=== PATIENT | female | born 1955 | race African-American/Black ===

== ENCOUNTER 2019-02-08 14:45 | Inpatient (IN) | payer OTHER ==
[2019-02-08 18:39] VITALS: BMI 21.6
--- NOTE | 2019-02-08 19:04 | HP ---
CIWA Score Nausea/Vomitin Muscle Tremors: 1-None Visible, but [place] Anxiety: 2 Agitation: 1-Slight > Activity Paroxysmal Sweats: 1-Minimal Palms Moist Orientation: 2-Disoriented Date<2 days Tacttile Disturbances: 0-None Auditory Disturbances: 1-Very Mild Visual Disturbances: 1-Very Mild Sensitivity Headache: 1-Very Mild CIWA-Ar Total Score: 13 - Admission Criteria OASAS Guidelines: Admission for Medically Managed Detox: Requires at least one of the followin. CIWA greater than 12 2. Seizures within the past 24 hours 3. Delirium tremens within the past 24 hours 4. Hallucinations within the past 24 hours 5. Acute intervention needed for co occurring medical disorder 6. Acute intervention needed for co occurring psychiatric disorder 7. Severe withdrawal that cannot be handled at a lower level of care (continued vomiting, continued diarrhea, abnormal vital signs) requiring intravenous medication and/or fluids 8. Admission ROS [facility] - [facility] Chief Complaint: Withdrawal symptoms Allergies/Adverse Reactions: Allergies Allergy/AdvReac Type Severity Reaction Status Date / Time No Known Drug Allergies Allergy Verified 02/08/19 18:01 History of Present Illness: 63 y.o. woman with an history of alcohol dependence is here seeking her first admission to detox. Pt. is a poor historian and is forgetful. She is currently enrolled at [facility] and reports she was last medicated with 60mg of methadone today (unverified). Exam Limitations: No Limitations - Ebola screening Have you traveled outside of the country in the last 21 days: No Have you had contact with anyone from an Ebola affected area: No - Review of Systems Constitutional: Chills, Loss of Appetite, Unintentional Wgt. Loss EENT: reports: No Symptoms Reported Respiratory: reports: Shortness of Breath Cardiac: reports: No Symptoms Reported GI: reports: Diarrhea : reports: No Symptoms Reported Musculoskeletal: reports: Back Pain Integumentary: reports: No Symptoms Reported Neuro: reports: No Symptoms reported Endocrine: reports: No Symptoms Reported Hematology: reports: No Symptoms Reported Psychiatric: reports: Anxious, other (Forgetful) Other Systems: Reviewed and Negative Patient History - Patient Medical History Hx Anemia: No Hx Asthma: Yes (Childhood asthma ) Hx Chronic Obstructive Pulmonary Disease (COPD): No Hx Cancer: No Hx Cardiac Disorders: No Hx Congestive Heart Failure: No Hx Hypertension: Yes (On medication) Hx Hypercholesterolemia: No Hx Pacemaker: No HX Cerebrovascular Accident: No Hx Seizures: No Hx Dementia: No Hx Diabetes: No Hx Gastrointestinal Disorders: No Hx Liver Disease: No Hx Genitourinary Disorders: No Hx Sexually Transmitted Disorders: No Hx Renal Disease (ESRD): No Hx Thyroid Disease: No Hx Human Immunodeficiency Virus (HIV): No Hx Hepatitis C: No Hx Depression: Yes Hx Suicide Attempt: No Hx Bipolar Disorder: No Hx Schizophrenia: No - Patient Surgical History Past Surgical History: Yes Hx Orthopedic Surgery: Yes (Back surgery: "Don't remember, long time ago". ) Anesthesia Reaction: No - PPD History Previous Implant?: Yes Documented Results: Negative w/o proof PPD to be Administered?: Yes - Reproductive History Patient is a Female of Child Bearing Age (11 -55 yrs old): No Patient : No - Smoking Cessation Smoking history: Current every day smoker Have you smoked in the past 12 months: Yes Aproximately how many cigarettes per day: 6 Initiated information on smoking cessation: Yes 'Breaking Loose' booklet given: 02/08/19 - Substance & Tx. History Hx Alcohol Use: Yes Hx Substance Use: Yes Substance Use Type: Alcohol, Cocaine Hx Substance Use Treatment: Yes (Goes to [facility] ) - Substances abused Alcohol Substance route: Oral Frequency: Daily Amount used: Beer 8 cans Age of first use: 18 Date of last use: 02/08/19 Cocaine Substance route: Inhalation Frequency: 1-2 times per week Amount used: $5 Age of first use: 62 Date of last use: 02/03/19 Family Disease History - Family Disease History Family Disease History: Heart Disease: Father (Alcohol dependence; Lung cancer; ), CA: Father, Other: Father Admission Physical Exam S - Vital Signs Vital Signs: Vital Signs - 24 hr 02/08/19 18:25 Temperature 98.7 F Pulse Rate 70 Respiratory 16 Rate Blood Pressure 115/70 - Physical General Appearance: Yes: Irritable, Anxious HEENTM: Yes: Hearing grossly Normal, Normocephalic, Normal Voice Respiratory: Yes: Lungs Clear, Normal Breath Sounds, No Respiratory Distress, No Accessory Muscle Use Neck: Yes: Within Normal Limits Breast: Yes: Breast Exam Deferred Cardiology: Yes: Regular Rhythm, Regular Rate Abdominal: Yes: Normal Bowel Sounds, Non Tender, Flat, Soft Genitourinary: Yes: Other (No complaints reported) Back: Yes: Normal Inspection Musculoskeletal: Yes: full range of Motion Extremities: Yes: Normal Inspection, Normal Range of Motion, Non-Tender Neurological: Yes: Alert (Alert to self.), Other (Forgetful) Integumentary: Yes: Dry, Warm Lymphatic: Yes: Within Normal Limits - Diagnostic (1) Alcohol dependence with intoxication, uncomplicated Current Visit: Yes Status: Chronic (2) Cocaine dependence Current Visit: Yes Status: Chronic (3) Nicotine dependence Current Visit: Yes Status: Chronic (4) Asthma Current Visit: Yes Status: Chronic (5) Hypertension Current Visit: Yes Status: Chronic (6) Opioid dependence on agonist therapy Current Visit: Yes Status: Chronic (7) Chronic back pain Current Visit: Yes Status: Chronic (8) Forgetfulness Current Visit: Yes Status: Acute Cleared for Admission S - Detox or Rehab [facility] Level of Care: Medically Managed Detox Regimen/Protocol: Librium Claeared for Rehab Admission: No Breathalyzer - Breathalyzer Breathalyzer: 0 Urine Drug Screen - Test Device Lot number: [id number] Expiration date: 10/23/20 - Control Is test valid?: Yes - Results Drug screen NEGATIVE: No Urine drug screen results: HERMILO-Cocaine, MOP-Opiates, MTD-Methadone Inpatient Rehab Admission - Rehab Decision to Admit Inpatient rehab admission?: No
[2019-02-08] MEDS ORDERED: MELATONIN 5 MG TABLETS PO PRN (19:13)
[2019-02-08] MEDS ORDERED: chlordiazePOXIDE HCL 10 MG CAPSULE PO PRN (19:13)
[2019-02-08] MEDS ORDERED: ACETAMINOPHEN 325 MG TABLET (FP) PO PRN ×2 (19:13)
[2019-02-08] MEDS ORDERED: MAG HYDROX/AL HYDROX/SIMETH 30 ML UNIT-DOSE CUP PO PRN (19:13)
[2019-02-08] MEDS ORDERED: hydrOXYzine PAMOATE 25 MG CAPSULE (FP) PO PRN (19:13)
[2019-02-08] MEDS ORDERED: MAGNESIUM CITRATE 300 ML BOTTLE PO PRN (19:13)
[2019-02-08] MEDS ORDERED: MAGNESIUM HYDROX 2400MG/30ML ORAL SUSPENSION 30 ML CUP PO PRN (19:13)
[2019-02-08] MEDS ORDERED: BISMUTH SUBSALICYLATE 524 MG/30 ML UD PO PRN (19:13)
[2019-02-08] MEDS ORDERED: IBUPROFEN 400 MG TABLET (FP) PO PRN (19:13)
[2019-02-08] MEDS ORDERED: MENTHOL/PHENOL 1 EACH UD MM PRN (19:13)
[2019-02-08] MEDS ORDERED: NICOTINE POLACRILEX 2 MG GUM BUC PRN (19:13)
[2019-02-08] MEDS: chlordiazePOXIDE HCL 25 MG CAPSULE PO SCH (21:13)
[2019-02-08] MEDS: THIAMINE HCL 100 MG TABLET (FP) PO SCH (21:13)
[2019-02-09] MEDS: chlordiazePOXIDE HCL 25 MG CAPSULE PO SCH ×3 (05:25→22:25)
[2019-02-09] MEDS ORDERED: METHADONE HCL 10 MG TABLET PO ONE (08:31)
[2019-02-09] MEDS: PRENATAL VITAMINS W/ FOLIC ACID TABLET (FP) PO SCH (09:21)
[2019-02-09] MEDS: HYDROCHLOROTHIAZIDE 25 MG TABLET (FP) PO SCH (09:21)
--- NOTE | 2019-02-09 09:54 | CONSULT ---
[facility] Psychiatric Consult - Data Date of interview: 02/09/19 Admission source: Self-referred Identifying data: Ms Park is a 63 years old single Black female, mother of 3 adopted sons, retired from [email or web address],receiving social security, homeless seeking detox treatment for alcohol and cocaine Substance Abuse History: Reports history of alcohol and cocaine use. Refer to addiction counselor summary for further information Medical History: Significant for bronchial asthma, hypertension, history of back surgery. Patient is on methadone 40 mg/day from [facility]. Smokes 6 cigarettes Psychiatric History: Reports that her only psychiatric treatment was for a few months from late to early college. Claims that depressive symptoms stemmed from relationship issue. She said that she was prescribed medication but has no recollection of the name of it. Denies previous psychiaric hospitalization or suicidal attemt. At present, reports feeling mildly depressed and sleeping poorly Physical/Sexual Abuse/Trauma History: Denies history of emotional, physical or sexual abuse as well as DV relationship. No millitary service Additional Comment: Denies criminal history Mental Status Exam - Mental Status Exam Alert and Oriented to: Place, Person Cognitive Function: Fair Patient Appearance: Well Groomed Mood: Depressed (mildly) Affect: Normal Range Patient Behavior: Cooperative Speech Pattern: Clear Voice Loudness: Normal Thought Process: Intact, Goal Oriented Hallucinations: Denies Suicidal Ideation: Denies Homicidal Ideation: Denies Insight/Judgement: Poor Sleep: Poorly Appetite: Good Muscle strength/Tone: Normal Gait/Station: Normal Psychiatric Findings - Problem List ([place] 1, 2,3) (1) Substance induced mood disorder Current Visit: Yes Status: Acute (2) Substance-induced sleep disorder Current Visit: Yes Status: Acute (3) Alcohol dependence with intoxication, uncomplicated Current Visit: Yes Status: Acute (4) Cocaine dependence Current Visit: Yes Status: Acute (5) Opioid dependence on agonist therapy Current Visit: Yes Status: Chronic (6) Nicotine dependence Current Visit: Yes Status: Acute (7) Asthma Current Visit: Yes Status: Chronic (8) Chronic back pain Current Visit: Yes Status: Chronic (9) Hypertension Current Visit: Yes Status: Chronic - Initial Treatment Plan Initial Treatment Plan: 1) Start Melatonin 10 mg po HS prn for insomnia. 2) Continue inpatient detoxification
[2019-02-09 10:05] LABS: HEMATOCRIT 39.7 % (32.4-45.2); HEMOGLOBIN 13.1 GM/dL (10.7-15.3); MCH 30.9 pg (25.7-33.7); MEAN CELL VOLUME 93.6 fl (80-96); MEAN PLT VOLUME 8.4 fl (7.5-11.1); PLATELET COUNT 265 K/MM3 (134-434); RBC 4.24 M/mm3 (3.60-5.2); RDW 13.3 % (11.6-15.6); WHITE BLOOD COUNT 5.2 K/mm3 (4.0-10.0)
--- NOTE | 2019-02-09 10:13 | EKG ---
Test Reason : Blood Pressure : / mmHG Vent. Rate : 066 BPM Atrial Rate : 066 BPM P-R Int : 120 ms QRS Dur : 088 ms QT Int : 414 ms P-R-T Axes : 060 062 073 degrees QTc Int : 434 ms SINUS RHYTHM WITH FREQUENT PREMATURE VENTRICULAR COMPLEXES AND PREMATURE ATRIAL COMPLEXES MINIMAL VOLTAGE CRITERIA FOR LVH, MAY BE NORMAL VARIANT SEPTAL INFARCT , AGE UNDETERMINED ABNORMAL ECG NO PREVIOUS ECGS AVAILABLE Confirmed by MD Shar, Jesus ([id number]) on 02/09/2019 10:12:56 AM Referred By: Confirmed By:Jesus Myles MD
[2019-02-09 10:17] LABS: ALBUMIN 3.8 g/dl (3.4-5.0); BILIRUBIN,TOTAL 0.4 mg/dL (0.2-1); BLOOD UREA NITROGEN 33.3 mg/dL (7-18); CALCIUM 9.6 mg/dL (8.5-10.1); CREATININE 1.5 mg/dL (0.55-1.3); POTASSIUM 3.6 mmol/L (3.5-5.1); TOT PROT 7.6 g/dl (6.4-8.2)
[2019-02-09] MEDS: NICOTINE 14 MG/24 HOURS TOPICAL PATCH TD SCH (11:33)
--- NOTE | 2019-02-09 12:25 | PN ---
S CIWA - CIWA Score Nausea/Vomitin-No Nausea/No Vomiting Muscle Tremors: 3 Anxiety: 3 Agitation: 3 Paroxysmal Sweats: 3 Orientation: 0-Oriented Tacttile Disturbances: 0-None Auditory Disturbances: 0-None Visual Disturbances: 0-None Headache: 0-None Present CIWA-Ar Total Score: 12 S Progress Note (SOAP) Subjective: sweats shakes body aches tired Objective: 02/09/19 12:24 Vital Signs Temperature 97.2 F L 02/09/19 09:23 Pulse Rate 74 02/09/19 09:23 Respiratory Rate 16 02/09/19 09:23 Blood Pressure 100/71 02/09/19 09:23 O2 Sat by Pulse Oximetry (%) Laboratory Tests 02/09/19 02/09/19 08:00 08:00 WBC 5.2 RBC 4.24 Hgb 13.1 Hct 39.7 MCV 93.6 MCH 30.9 MCHC 33.0 RDW 13.3 Plt Count 265 MPV 8.4 Sodium 141 Potassium 3.6 Chloride 102 Carbon Dioxide 32 Anion Gap 6 L BUN 33.3 H Creatinine 1.5 H Est GFR (CKD-EPI)AfAm 42.23 Est GFR (CKD-EPI)NonAf 36.44 Random Glucose 62 L Calcium 9.6 Total Bilirubin 0.4 AST 26 ALT 21 Alkaline Phosphatase 96 Total Protein 7.6 Albumin 3.8 labs noted aaox3 ambulating no acute distress Assessment: 02/09/19 12:25 withdrawal sx Plan: continue detox increase fluids
[2019-02-09] MEDS ORDERED: TUBERCULIN PPD 5 TU/0.1ML SYRINGE (IN PATIENT USE ONLY) ID ONE (16:47)
[2019-02-09] MEDS: THIAMINE HCL 100 MG TABLET (FP) PO SCH (22:25)
[2019-02-09] MEDS: METHOCARBAMOL 500 MG TABLET PO PRN (22:25)
[2019-02-09] MEDS: MELATONIN 5 MG TABLETS PO PRN (22:25)
[2019-02-10] MEDS: chlordiazePOXIDE 5 MG CAPSULE PO SCH ×3 (06:15→22:04)
[2019-02-10] MEDS: METHADONE HCL 40 MG DISPERSABLE TABLET PO SCH (06:16)
[2019-02-10] MEDS: HYDROCHLOROTHIAZIDE 25 MG TABLET (FP) PO SCH (10:08)
[2019-02-10] MEDS: PRENATAL VITAMINS W/ FOLIC ACID TABLET (FP) PO SCH (10:08)
[2019-02-10] MEDS: NICOTINE 14 MG/24 HOURS TOPICAL PATCH TD SCH (10:09)
--- NOTE | 2019-02-10 12:09 | PN ---
S CIWA - CIWA Score Nausea/Vomitin-No Nausea/No Vomiting Muscle Tremors: 2 Anxiety: 2 Agitation: 3 Paroxysmal Sweats: 2 Orientation: 0-Oriented Tacttile Disturbances: 0-None Auditory Disturbances: 0-None Visual Disturbances: 0-None Headache: 0-None Present CIWA-Ar Total Score: 9 BHS Progress Note (SOAP) Subjective: sweats tired interrupted sleep Objective: 02/10/19 12:08 Vital Signs Temperature 96 F L 02/10/19 09:26 Pulse Rate 91 H 02/10/19 09:26 Respiratory Rate 18 02/10/19 09:26 Blood Pressure 133/66 02/10/19 09:26 O2 Sat by Pulse Oximetry (%) Laboratory Tests 02/09/19 02/09/19 02/09/19 08:00 08:00 08:00 WBC 5.2 RBC 4.24 Hgb 13.1 Hct 39.7 MCV 93.6 MCH 30.9 MCHC 33.0 RDW 13.3 Plt Count 265 MPV 8.4 Sodium 141 Potassium 3.6 Chloride 102 Carbon Dioxide 32 Anion Gap 6 L BUN 33.3 H Creatinine 1.5 H Est GFR (CKD-EPI)AfAm 42.23 Est GFR (CKD-EPI)NonAf 36.44 Random Glucose 62 L Calcium 9.6 Total Bilirubin 0.4 AST 26 ALT 21 Alkaline Phosphatase 96 Total Protein 7.6 Albumin 3.8 RPR Titer Nonreactive aaox3 ambulating no acute distress Assessment: 02/10/19 12:08 mild withdrawal Plan: continue detox increase fluids
[2019-02-10] MEDS: METHOCARBAMOL 500 MG TABLET PO PRN (22:04)
[2019-02-10] MEDS: THIAMINE HCL 100 MG TABLET (FP) PO SCH (22:04)
[2019-02-10] MEDS: MELATONIN 5 MG TABLETS PO PRN (22:05)
[2019-02-11] MEDS ORDERED: chlordiazePOXIDE HCL 10 MG CAPSULE PO PRN
[2019-02-11] MEDS: chlordiazePOXIDE HCL 10 MG CAPSULE PO SCH ×3 (05:58→22:17)
[2019-02-11] MEDS: METHADONE HCL 40 MG DISPERSABLE TABLET PO SCH (05:58)
[2019-02-11] MEDS: PRENATAL VITAMINS W/ FOLIC ACID TABLET (FP) PO SCH (10:27)
[2019-02-11] MEDS: NICOTINE 14 MG/24 HOURS TOPICAL PATCH TD SCH (10:27)
[2019-02-11] MEDS: HYDROCHLOROTHIAZIDE 25 MG TABLET (FP) PO SCH (10:28)
--- NOTE | 2019-02-11 14:48 | PN ---
[facility] CIWA - CIWA Score Nausea/Vomitin-No Nausea/No Vomiting Muscle Tremors: None Anxiety: 1-Mildly Anxious Agitation: 2 Paroxysmal Sweats: No Perspiration Orientation: 0-Oriented Tacttile Disturbances: 0-None Auditory Disturbances: 0-None Visual Disturbances: 0-None Headache: 0-None Present CIWA-Ar Total Score: 3 BHS Progress Note (SOAP) Subjective: back pain Objective: 02/11/19 14:47 Vital Signs Temperature 96.4 F L 02/11/19 13:59 Pulse Rate 84 02/11/19 13:59 Respiratory Rate 16 02/11/19 13:59 Blood Pressure 133/79 02/11/19 13:59 O2 Sat by Pulse Oximetry (%) aaox3 ambulating no acute distress Assessment: 02/11/19 14:47 mild withdrawals Plan: continue detox increase fluids motrin/tylenol prn d/c in am
[2019-02-11] MEDS: THIAMINE HCL 100 MG TABLET (FP) PO SCH (22:17)
[2019-02-11] MEDS: MELATONIN 5 MG TABLETS PO PRN (22:17)
[2019-02-12] MEDS ORDERED: chlordiazePOXIDE HCL 10 MG CAPSULE PO ONE (05:00)
[2019-02-12] MEDS: METHADONE HCL 40 MG DISPERSABLE TABLET PO SCH (06:19)
--- NOTE | 2019-02-12 08:43 | DS ---
[facility] Detox Discharge Summary Admission Date: 02/08/19 Discharge Date: 02/12/19 - History Present History: Alcohol Dependence, Cocaine Dependence - Physical Exam Results Vital Signs: Vital Signs Temperature 97.9 F 02/12/19 07:55 Pulse Rate 85 02/12/19 07:55 Respiratory Rate 18 02/12/19 07:55 Blood Pressure 127/72 02/12/19 07:55 O2 Sat by Pulse Oximetry (%) Pertinent Admission Physical Exam Findings: pt arrived in withdrawals Laboratory Tests 02/09/19 02/09/19 02/09/19 08:00 08:00 08:00 WBC 5.2 RBC 4.24 Hgb 13.1 Hct 39.7 MCV 93.6 MCH 30.9 MCHC 33.0 RDW 13.3 Plt Count 265 MPV 8.4 Sodium 141 Potassium 3.6 Chloride 102 Carbon Dioxide 32 Anion Gap 6 L BUN 33.3 H Creatinine 1.5 H Est GFR (CKD-EPI)AfAm 42.23 Est GFR (CKD-EPI)NonAf 36.44 Random Glucose 62 L Calcium 9.6 Total Bilirubin 0.4 AST 26 ALT 21 Alkaline Phosphatase 96 Total Protein 7.6 Albumin 3.8 RPR Titer Nonreactive today pt is aaox3 ambulating no acute distress no s/s of withdrawals - Treatment Hospital Course: Detox Protocol Followed, Detoxed Safely, Responded well, Discharged Condition Good, Rehab Referral Accepted Patient has Accepted a Rehab Referral to: referral to [facility] program - Medication Discharge Medications: Ambulatory Orders Hydrochlorothiazide [Hctz -] 25 mg PO DAILY 02/08/19 - Diagnosis (1) Alcohol dependence with intoxication, uncomplicated Current Visit: Yes Status: Chronic (2) Cocaine dependence Current Visit: Yes Status: Chronic Qualifiers: Substance use status: uncomplicated Qualified Code(s): F14.20 - Cocaine dependence, uncomplicated (3) Nicotine dependence Current Visit: Yes Status: Acute (4) Substance induced mood disorder Current Visit: Yes Status: Acute (5) Substance-induced sleep disorder Current Visit: Yes Status: Acute (6) Asthma Current Visit: Yes Status: Chronic Qualifiers: Asthma severity: mild Asthma complication type: unspecified (7) Chronic back pain Current Visit: Yes Status: Chronic Qualifiers: Back pain laterality: unspecified (8) Hypertension Current Visit: Yes Status: Chronic Qualifiers: Hypertension type: essential hypertension Qualified Code(s): I10 - Essential (primary) hypertension (9) Opioid dependence on agonist therapy Current Visit: Yes Status: Chronic - AMA Did Patient Leave Against Medical Advice: No
[2019-02-12] MEDS: NICOTINE 14 MG/24 HOURS TOPICAL PATCH TD SCH (10:17)
[2019-02-12] MEDS: PRENATAL VITAMINS W/ FOLIC ACID TABLET (FP) PO SCH (11:21)
[2019-02-12] MEDS: HYDROCHLOROTHIAZIDE 25 MG TABLET (FP) PO SCH (11:21)
[2019-02-12 14:08] VITALS: BP 91/58; PULSE 88; TEMP 97.2
== END 2019-02-12 14:27 | disposition home or self-care (01) | DRG 773 ==
LOC: YASAS 14:45 → Y6N 19:47
PROVIDERS: ADMIT Surgery; ATTEND Surgery
PROC: HZ2ZZZZ Detoxification Services for Substance Abuse Treatment (ICD-10-PCS; principal; 2019-02-08)
DX: F10.230 Alcohol dependence with withdrawal, uncomplicated (principal); F11.20 Opioid dependence, uncomplicated; F14.20 Cocaine dependence, uncomplicated; F17.210 Nicotine dependence, cigarettes, uncomplicated; F19.24 Other psychoactive substance dependence with psychoactive substance-induced mood disorder; F19.282 Other psychoactive substance dependence with psychoactive substance-induced sleep disorder; F32.9 Major depressive disorder, single episode, unspecified; I10 Essential (primary) hypertension; J45.20 Mild intermittent asthma, uncomplicated; M54.9 Dorsalgia, unspecified; G89.29 Other chronic pain
CPT/HCPCS: 36415; 80053; 85027; 86593; 93005; 93010